=== PATIENT | female | born 1950 | race Caucasian/White ===

== ENCOUNTER 2017-03-05 08:44 | Inpatient (IN) | payer BC ==
[~2017-03-05] VITALS: Ht 165.1 cm; Wt 59.1 kg
--- NOTE | ~2017-03-05 | H ---
[facility] [address] [place] [address] HISTORY AND PHYSICAL Name: MAXIME ROQUE Room #: 438-P ADM IN M.R.#: [id number] Admission: 03/05/17 Attend Phys: Enoc Killian MD Discharge: Date of : 46 Report #: [id number] THIS REPORT FOR: //name// CC: Enoc Chacko Joesph DATE OF SERVICE: 03/05/2017 HISTORY OF PRESENT ILLNESS: The patient is a 66-year-old female who was admitted to the emergency room with nausea and vomiting. Her symptoms began last week when she had an accident stepping on object in her yard and she thinks may be scraped or injured her first toe of the left foot. She had a blister area and then got on a plane for a scheduled trip to [place]. Upon arriving there, she noted her toe to be swollen, red and tender and she presented to a local urgent care clinic. They treated her with it sounds to be cephalexin. However, things did not improve and she went to the ER there as well and continued treatment. Nausea and vomiting developed after initiation of the antibiotic and she flew home to [place] this past Saturday. She presented here to the ER for nausea and vomiting, we have just given symptom treatment. However, the last 2 days symptoms have persisted, she has been unable to eat or drink much and just feeling weak. PAST MEDICAL HISTORY: Hypertension and dyslipidemia. PAST SURGICAL HISTORY: Noncontributory. FAMILY HISTORY: Unknown. SOCIAL HISTORY: She is and lives at home. Admits to alcohol use. No tobacco use. ALLERGIES: None. MEDICATIONS: Crestor, hydrochlorothiazide, tramadol, Zofran, clonidine, cephalexin, and oxycodone. REVIEW OF SYSTEMS: She denies headache, chest pain, shortness of breath, abdominal pain, diarrhea, constipation, dysuria, or syncope. OBJECTIVE: VITAL SIGNS: Temperature 36.8, pulse 56, respirations 18, and blood pressure 154/72. GENERAL: She is awake and alert, in no distress. HEAD AND NECK: Unremarkable. LUNGS: Clear. HEART: Regular. [facility] [address] [place] [address] HISTORY AND PHYSICAL Name: MAXIME ROQUE Room #: 438-P ADM IN [facility].#: [id number] Admission: 03/05/17 Attend Phys: Enoc Killian MD Discharge: Date of : 46 Report #: [id number] ABDOMEN: Soft, normoactive bowel sounds, nontender, no rebound or guarding. EXTREMITIES: No cyanosis or clubbing. The left first toe on the lateral aspect has about a quarter size area of excoriation with some yellow fibrinous base. There are no exposed deep tissues. LABORATORY DATA: Reviewed. ASSESSMENT: 1. Persistent nausea and vomiting. 2. Cellulitis of the left first toe. PLAN: She has failed outpatient treatment with multiple trips to clinics and ER, oral antibiotics and/or pain medication could be contributing. For now, bowel rest with IV fluid, IV antibiotics and I will ask Dr. Witt to assess the left toe for some topical wound care orders. <ELECTRONICALLY SIGNED> By: Enoc Killian MD 03/06/17 0847 1159 1258 Enoc Killian MD /nt
--- NOTE | ~2017-03-05 | HC ---
[facility] [place] [address] CONSULTATION Name: MAXIME ROQUE Room #: 438-P [facility] IN M.R.#: [id number] Admission: 03/05/17 Attend Phys: Enoc Killian MD Discharge: 03/06/17 Date of : 46 Report #: [id number] THIS REPORT FOR: //name// CC: Enoc Chacko Joesph DATE OF SERVICE: 03/06/2017 REQUESTING PHYSICIAN: Dr. Killian. CHIEF COMPLAINT: Toe wounds. HISTORY OF PRESENT ILLNESS: This is a 66-year-old white female who was admitted on Saturday evening for cellulitis of the left great toe with associated intractable nausea and vomiting. The patient states approximately 10 days ago, she inadvertently stepped on what she thinks was an acorn in her front yard and suffered an abrasion to the medial aspect of her left great toe. The patient states that it seemed fairly stable for several days and then she ended up getting on a plane and traveling to [place]. When she got to [place], she noted that the left foot was somewhat swollen and she developed a hemorrhagic blister over the medial aspect of the toe itself. She went to a local urgent care and was started on cephalexin; however, the next couple of days the toe and foot seemed to get worse. It was more swollen, tender and she started having chills. She went to the Emergency Department, had an I and D of the hemorrhagic blister and was started on Levaquin; however, the patient states the Levaquin after one or two doses started making her extremely nauseated. She had intractable nausea and vomiting, caught a flight back to [place] on Saturday and came to the Emergency Department late Saturday afternoon and was admitted to the hospital for intractable nausea and vomiting and cellulitis of the left foot and toe. I have been asked to follow the toe for further evaluation of the wound care. The patient states she never had any other wounds that she could not treat on her own. PAST MEDICAL HISTORY: Significant for hypertension and dyslipidemia. CURRENT MEDICATIONS: Included Crestor, tramadol, Zofran, clonidine, hydrochlorothiazide, cephalexin and oxycodone as well as the recent course of Levaquin, which she said she had the nausea and vomiting from. DRUG ALLERGIES: None. SOCIAL HISTORY: The patient lives at home with her . Drinks alcohol socially. Does not smoke tobacco. REVIEW OF SYSTEMS: CONSTITUTIONAL: The patient had chills for the couple of days prior to [facility] [address] [place] [address] CONSULTATION Name: MAXIME ROQUE Room #: 438-P [facility] IN [facility].#: [id number] Admission: 03/05/17 Attend Phys: Enoc Killian MD Discharge: 03/06/17 Date of : 46 Report #: [id number] admission to the hospital. Denies any in the past 24 hours. NEUROLOGIC: The patient has overall generalized weakness, but no isolated weakness in arms or legs. EYES: No complaints. ENT: No complaints. CARDIAC: The patient denies chest pain, palpitations or any peripheral edema. RESPIRATORY: The patient denies shortness breath, cough or wheezes. GASTROINTESTINAL: The patient had intractable nausea and vomiting and abdominal pain upon admission to the hospital, this has now resolved. She is actually up eating lunch at this time. GENITOURINARY: The patient denies urgency or frequency. MUSCULOSKELETAL: No complaints. SKIN: The patient has a nonhealing ulcer on the medial aspect of the left great toe with surrounding mild erythema. PHYSICAL EXAMINATION: VITAL SIGNS: Temperature 36.7, pulse 75, respirations 16 and BP 108/62. GENERAL: This is an alert and oriented x 3, pleasant white female who is absolutely in no distress. HEENT: Normocephalic and atraumatic. Mucous membranes are moist. Pupils are round. Sclerae white. NECK: Supple and nontender without JVD. BACK: Nontender. LUNGS: Clear. HEART: Regular without murmur. ABDOMEN: Soft. Mild tenderness in the epigastrium without rebound or guarding. No hepatosplenomegaly. EXTREMITIES: The patient moves all extremities without difficulty. Distal pulses are 2+ dorsalis pedis and posterior tibial. Evaluation of the left foot reveals minimal erythema or swelling around the forefoot with minimal tenderness. There are no signs or fluctuance. Evaluation of the left great toe reveals an ulceration that is clean and granulating. Periwound has a slight callus around it. There are no signs of tunneling, tracking, or undermining. There is no involvement of deeper structures, specifically no evidence of any bony involvement. Distal tuft of the toe is intact. Rest of the foot is intact with open ulcerations. Right foot is totally intact without any open ulcerations. NEUROLOGIC: Cranial nerves 2-12 are grossly intact. Motor and sensory grossly intact. LABORATORY DATA: White count 5.1 and hemoglobin 10.4. BUN 11 and creatinine 0.9. WOUND CARE COURSE: I spoke at length with the patient. The patient was seen last afternoon by our wound care nurse at the hospital and was started on gentamicin and gauze. She admits to the fact that the wound today actually [address] [address] CONSULTATION Name: MAIXME ROQUE Room #: 438-P DIS IN M.R.#: [id number] Admission: 03/05/17 Attend Phys: Enoc Killian MD Discharge: 03/06/17 Date of : 46 Report #: [id number] appears much healthier and paper cleaner. We will continue with gentamicin and gauze dressings for now. The patient herself states that she can do the dressings on her own and does not need home health. The patient will follow up in our clinic next week for repeat evaluation. The patient will go home on Keflex 500 mg t.i.d. The patient responded well to IV cefazolin here. The patient states that she also does complain of some burning type pain, which almost seems neuropathic in the toe and we will start her on gabapentin 300 mg at bedtime. The patient will call for any questions or concerns and will make sure she maximizes her oral supplementation of protein for healing. IMPRESSION: 1. Chronic ulcer, left great toe, limited to exposure of fat layer. 2. Resolving cellulitis, left great toe. 3. Intractable nausea and vomiting possibly secondary to antibiotic usage now resolved. 4. Mild debility. 5. Mild protein calorie malnutrition secondary to nausea and vomiting. PLAN: Described in length as above. We will continue to follow the patient as an outpatient and the patient will call for questions or concerns. By: [id number] Robbi Witt MD /nt
--- NOTE | ~2017-03-05 | D ---
[facility] [place] [address] DISCHARGE SUMMARY Name: MAXIME ROQUE Room #: 438-P [facility] IN M.R.#: [id number] Admission: 03/05/17 Attend Phys: Enoc Killian MD Discharge: 03/06/17 Date of : 46 Report #: [id number] THIS REPORT FOR: //name// CC: Enoc Pink DATE OF SERVICE: 03/06/2017 FINAL DIAGNOSES: 1. Nausea and vomiting. 2. Cellulitis of the left first toe. HOSPITAL COURSE: The patient was admitted with persistent nausea, vomiting, and failed outpatient treatment after several ER trips both in [place] and here in [facility]. X-ray was unremarkable of the abdomen. She was placed on bowel rest with IV fluids overnight and IV antibiotics. The oxycodone was discontinued for concern that this was a precipitant of her symptoms. Wound care followed and managed her toe wound with some topical antibiotic ointment. She had no other interval complication. The following day, she was eating a regular diet with no abdominal symptoms. DISPOSITION: She is discharged to home with diet and activity as tolerated. She will continue to finish her Keflex. She has topical antibiotic ointment to the left toe. She is to discontinue any of the narcotics at home. Use Tylenol or Advil for pain. Follow up with Dr. Pink in a few days. By: [id number] Enoc Killian MD /thony
[2017-03-05 08:44] VITALS: BP 153/95
[~2017-03-05 08:44] MED LIST: AMBEREN PO; ATENOLOL 25 MG25 M1 PO; BAYER CHEWABLE81 MG PO; CATAPRES0.1 MG PO; CLEOCIN HCL150 MG PO; CO Q-10100 MG PO; CRESTOR10 MG PO; FISHOIL PO; HYDROCHLOROTHIA25 M2 PO; KEFLEX500 M1 PO; OXYCODONE HCL 55 MG PO; ULTRAM 50MG TAB50 MG PO; ZOFRAN ODT4 MG PO; ZPAK PO
[2017-03-05 09:21] LABS: HEMOGLOBIN 12.7 gm/dL (12.0-15.0)
[2017-03-05 09:23] LABS: ABSOLUTE NEUTROPHILS 4.9 thou/uL (1.4-8.2); BASOPHILS 0.4 % (0.0-2.0); EOSINOPHILS 1.5 % (0.0-3.0); HEMATOCRIT 37.2 % (37.0-47.0); LYMPHOCYTES 20.2 % (24.0-44.0); MCH 31.7 pg (26.0-34.0); MCHC 34.3 g/dL (28.0-37.0); MCV 92.3 fL (80.0-100.0); MONOCYTES 9.9 % (1.0-8.0); PLATELET COUNT 245 thou/uL (150-400); RBC 4.03 mil/uL (4.20-5.00); RDW 12.6 % (10.5-14.5); WBC 7.2 thou/uL (4.0-11.0)
[2017-03-05 09:24] LABS: MANUAL DIFF NO
[2017-03-05 09:34] LABS: CALCIUM 9.9 mg/dL (8.5-10.1); CREATININE 0.8 mg/dL (0.6-1.0); POTASSIUM 4.3 mmol/L (3.5-5.1)
[2017-03-05 09:40] LABS: DIRECT BILIRUBIN 0.2 mg/dL (<0.1-0.3); TOTAL BILIRUBIN 0.7 mg/dL (<0.1-1.0); TOTAL PROTEIN 6.6 g/dL (6.4-8.2)
[2017-03-05 10:15] VITALS: BP 153/72
[2017-03-05 10:28] VITALS: BP 155/79
[2017-03-05 11:03] VITALS: BP 154/72
[2017-03-05 15:54] VITALS: BP 159/73
[2017-03-05 20:16] VITALS: BP 133/68
[2017-03-06 04:34] VITALS: BP 122/60
[2017-03-06 06:33] LABS: HEMATOCRIT 30.4 % (37.0-47.0); MCH 31.7 pg (26.0-34.0); MCHC 34.1 g/dL (28.0-37.0); MCV 92.9 fL (80.0-100.0); RBC 3.27 mil/uL (4.20-5.00); RDW 12.7 % (10.5-14.5); WBC 5.1 thou/uL (4.0-11.0)
[2017-03-06 06:34] LABS: HEMOGLOBIN 10.4 gm/dL (12.0-15.0)
[2017-03-06 06:35] LABS: CALCIUM 9.4 mg/dL (8.5-10.1); CREATININE 0.9 mg/dL (0.6-1.0); POTASSIUM 3.6 mmol/L (3.5-5.1)
[2017-03-06 07:48] VITALS: BP 108/62
[2017-03-06 13:26] VITALS: BP 108/62
== END 2017-03-06 14:30 | disposition home or self-care (01) | DRG 603 ==
LOC: ER 08:44 → EROBS 09:59 → 4S 09:59 → ENTRNSPT 03-06 14:20 → EDTRNSPTSTS 03-06 14:22 → 4S 03-06 14:30 → CMPTRNSPT 03-06 14:48
PROVIDERS: Emergency Medicine; Internal Medicine Geriatric Medicine
DX: L03.032 Cellulitis of left toe (principal); E44.1 Mild protein-calorie malnutrition; I10 Essential (primary) hypertension; E78.5 Hyperlipidemia, unspecified; R11.2 Nausea with vomiting, unspecified; E86.0 Dehydration; L97.529 Non-pressure chronic ulcer of other part of left foot with unspecified severity; Z68.21 Body mass index [BMI] 21.0-21.9, adult
CPT/HCPCS: 10195

== ENCOUNTER → 2017-03-14 | Outpatient (CLI) | payer BC | LOC: HYPER 06:27 | DX: L97.521 Non-pressure chronic ulcer of other part of left foot limited to breakdown of skin (principal); E78.00 Pure hypercholesterolemia, unspecified; I10 Essential (primary) hypertension; Z72.89 Other problems related to lifestyle ==

== ENCOUNTER → 2017-04-03 | Outpatient (CLI) | payer BC ==
[~2017-04-03] MED LIST changes: +CIPRO500 MG PO; +CITRATE OF MAG296 ML PO; +LISINOPRIL40 MG PO; +METOPROLOL SUCC50 MG PO; +PHENERGAN 25 MG25 M1 PO; +PROMS25 WY RECTAL
== END ==
LOC: HYPER 06:36
DX: L97.521 Non-pressure chronic ulcer of other part of left foot limited to breakdown of skin (principal); I10 Essential (primary) hypertension; E78.00 Pure hypercholesterolemia, unspecified; Z72.89 Other problems related to lifestyle

== ENCOUNTER 2017-06-12 05:33 | Emergency (ER) | payer BC, OTHER ==
[~2017-06-12] VITALS: Ht 165.1 cm; Wt 59.0 kg
--- NOTE | ~2017-06-12 | EKG ---
[address] [address] ELECTROCARDIOGRAM REPORT Name: MAXIME ROQUE [id number] Admission: 06/12/17 Attend Phys: Discharge: 06/12/17 Date of : 46 Report #: [id number] THIS REPORT FOR: //name// [facility] ED Test Date: 2017-06-12 Test Time: 06:12:17 Pat Name: MAXIME ROQUE Department: Room: Gender: F Photography Instructor: LRLUCAS : 1950 Requested By: Thien Herman Order Number: [id number] MD: Ross Romo Measurements Intervals [place] Rate: 69 P: 37 MD: 150 QRS: 19 QRSD: 110 T: 33 QT: 398 QTc: 427 Interpretive Statements Sinus rhythm No significant abnormality No previous ECG available for comparison Electronically Signed On 06-12-2017 15:02:23 CDT by Ross Romo [email or web address] <ELECTRONICALLY SIGNED> By: Ross Romo MD, [facility] 06/12/17 1502 0612 1 Ross Romo MD, FACC /EPI
[~2017-06-12 05:33] MED LIST changes: -CIPRO500 MG PO; -CITRATE OF MAG296 ML PO; -LISINOPRIL40 MG PO; -METOPROLOL SUCC50 MG PO; -PHENERGAN 25 MG25 M1 PO; -PROMS25 WY RECTAL
[2017-06-12 06:03] LABS: ABSOLUTE NEUTROPHILS 4.7 thou/uL (1.4-8.2); BASOPHILS 0.4 % (0.0-2.0); EOSINOPHILS 1.3 % (0.0-3.0); HEMATOCRIT 39.3 % (37.0-47.0); HEMOGLOBIN 13.4 gm/dL (12.0-15.0); LYMPHOCYTES 13.6 % (24.0-44.0); MCH 31.4 pg (26.0-34.0); MCV 92.2 fL (80.0-100.0); MONOCYTES 7.2 % (1.0-8.0); PLATELET COUNT 200 thou/uL (150-400); POLYS 77.5 % (36.0-66.0); RBC 4.26 mil/uL (4.20-5.00); RDW 13.4 % (10.5-14.5); WBC 6.1 thou/uL (4.0-11.0)
[2017-06-12 06:05] LABS: ANION GAP 10 mmol/L (7-16); BUN 24 mg/dL (7-18); CHLORIDE 104 mmol/L (98-107); CO2 26 mmol/L (21-32); CREATININE 1.1 mg/dL (0.6-1.0); GLUCOSE 143 mg/dL (74-106); POTASSIUM 4.1 mmol/L (3.5-5.1); SODIUM 140 mmol/L (136-145)
[2017-06-12 06:13] LABS: ALBUMIN 3.9 g/dL (3.4-5.0); LIPASE 133 U/L (73-393); SGOT 20 U/L (15-37); SGPT 29 U/L (30-65); TOTAL BILIRUBIN 0.4 mg/dL (<0.1-1.0); TROPONIN-I < 0.04 ng/mL (<0.06)
[2017-06-12] MEDS ORDERED: CITRATE OF MAG296 ML PO (06:45)
[2017-06-12] MEDS ORDERED: PHENERGAN 25 MG25 M1 PO (06:45)
[2017-06-12] MEDS ORDERED: ZOFRAN ODT4 MG PO (06:45)
[2017-06-12] MEDS ORDERED: PROMS25 WY RECTAL (07:25)
== END 2017-06-12 07:34 | disposition home or self-care (01) ==
LOC: ER 05:33
PROVIDERS: Emergency Medicine
DX: R10.10 Upper abdominal pain, unspecified (principal); R19.7 Diarrhea, unspecified; R11.2 Nausea with vomiting, unspecified; I10 Essential (primary) hypertension; E78.00 Pure hypercholesterolemia, unspecified

== ENCOUNTER 2017-06-14 08:34 | Emergency (ER) | payer BC, OTHER ==
[~2017-06-14] VITALS: Ht 170.2 cm; Wt 57.1 kg
--- NOTE | ~2017-06-14 | EKG ---
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
[~2017-06-14 08:34] MED LIST changes: +CITRATE OF MAG296 ML PO; +PHENERGAN 25 MG25 M1 PO; +PROMS25 WY RECTAL
[2017-06-14] MEDS ORDERED: CIPRO500 MG PO (09:05)
[2017-06-14] MEDS ORDERED: METOPROLOL SUCC50 MG PO (09:05)
[2017-06-14] MEDS ORDERED: LISINOPRIL40 MG PO (09:06)
[2017-06-14 09:20] LABS: ABSOLUTE NEUTROPHILS 3.4 thou/uL (1.4-8.2); BASOPHILS 0.2 % (0.0-2.0); EOSINOPHILS 0.9 % (0.0-3.0); HEMATOCRIT 38.5 % (37.0-47.0); HEMOGLOBIN 13.1 gm/dL (12.0-15.0); LYMPHOCYTES 27.7 % (24.0-44.0); MCH 31.1 pg (26.0-34.0); MCV 91.4 fL (80.0-100.0); MONOCYTES 10.4 % (1.0-8.0); PLATELET COUNT 186 thou/uL (150-400); POLYS 60.8 % (36.0-66.0); RBC 4.21 mil/uL (4.20-5.00); RDW 13.1 % (10.5-14.5); WBC 5.7 thou/uL (4.0-11.0)
[2017-06-14 09:29] LABS: CALCIUM 10.3 mg/dL (8.5-10.1); CREATININE 1.2 mg/dL (0.6-1.0); POTASSIUM 4.1 mmol/L (3.5-5.1)
[2017-06-14 09:35] LABS: ALBUMIN 3.9 g/dL (3.4-5.0); TOTAL BILIRUBIN 0.6 mg/dL (<0.1-1.0); TOTAL PROTEIN 6.9 g/dL (6.4-8.2)
[2017-06-14 10:36] LABS: URINE BILIRUBIN NEGATIVE (Negative); URINE BLOOD TRACE (Negative); URINE CLARITY CLEAR; URINE COLOR YELLOW; URINE GLUCOSE-RANDOM* NEGATIVE (Negative); URINE KETONES 2+ (Negative); URINE LEUKOCYTES-REFLEX NEGATIVE (Negative); URINE NITRITE-REFLEX NEGATIVE (Negative); URINE PROTEIN (DIPSTICK) NEGATIVE (Negative); URINE SPECIFIC GRAVITY <= 1.005 (1.005-1.035); URINE UROBILINOGEN 0.2 E.U./dl (0.2-1.0)
[2017-06-14] MEDS ORDERED: PROMS25 WY RECTAL (10:50)
[2017-06-14 11:06] VITALS: BP 137/62
== END 2017-06-14 11:09 | disposition home or self-care (01) ==
LOC: ER 08:34
PROVIDERS: Emergency Medicine
DX: R11.2 Nausea with vomiting, unspecified (principal); R19.7 Diarrhea, unspecified; I10 Essential (primary) hypertension; E78.00 Pure hypercholesterolemia, unspecified

== ENCOUNTER → 2019-10-02 | Outpatient (CLI) | payer OTHER ==
[~2019-10-02] MED LIST changes: +CIPRO500 MG PO; +LISINOPRIL40 MG PO; +METOPROLOL SUCC50 MG PO
== END ==
LOC: ULTRA 07:43
PROVIDERS: ATTEND Internal Medicine
DX: N28.1 Cyst of kidney, acquired (principal); N18.3 Chronic kidney disease, stage 3 (moderate)

== ENCOUNTER 2021-01-23 11:20 | Emergency (ER) | payer OTHER ==
[~2021-01-23] VITALS: Ht 165.1 cm; Wt 57.1 kg
[2021-01-23] MEDS ORDERED: HYDROCHLOROTHIA25 M1 PO (11:48)
[2021-01-23] MEDS ORDERED: SIMVASTATIN40 MG PO (11:49)
[2021-01-23] MEDS ORDERED: BUPROPION HCL200 MG PO (11:49)
[2021-01-23 12:13] LABS: BASOPHILS 0.5 % (0.0-2.0); EOSINOPHILS 0.3 % (0.0-3.0); HEMATOCRIT 38.1 % (37.0-47.0); HEMOGLOBIN 12.8 gm/dL (12.0-15.0); LYMPHOCYTES 19.7 % (24.0-44.0); MCH 31.7 pg (26.0-34.0); MCHC 33.7 g/dL (28.0-37.0); MCV 94.2 fL (80.0-100.0); MONOCYTES 13.7 % (1.0-8.0); PLATELET COUNT 194 thou/uL (150-400); POLYS 65.8 % (36.0-66.0); RBC 4.05 mil/uL (4.20-5.00); RDW 13.3 % (10.5-14.5); WBC 4.6 thou/uL (4.0-11.0)
[2021-01-23 12:43] LABS: CALCIUM 9.9 mg/dL (8.5-10.1); CREATININE 1.1 mg/dL (0.6-1.0); POTASSIUM 4.4 mmol/L (3.5-5.1)
[2021-01-23 12:53] LABS: ALBUMIN 4.2 g/dL (3.4-5.0); TOTAL BILIRUBIN 1.2 mg/dL (0.2-1.0); TOTAL PROTEIN 7.1 g/dL (6.4-8.2)
[2021-01-23 15:21] LABS: URINE BILIRUBIN NEGATIVE (Negative); URINE BLOOD TRACE (Negative); URINE CLARITY CLEAR; URINE COLOR YELLOW; URINE GLUCOSE-RANDOM* NEGATIVE (Negative); URINE KETONES NEGATIVE (Negative); URINE LEUKOCYTES-REFLEX NEGATIVE (Negative); URINE NITRITE-REFLEX NEGATIVE (Negative); URINE PROTEIN (DIPSTICK) NEGATIVE (Negative); URINE SPECIFIC GRAVITY 1.015 (1.005-1.035); URINE UROBILINOGEN 0.2 E.U./dl (0.2-1.0)
[2021-01-23] MEDS ORDERED: CARAFATE 1 GM TA1 G1 PO (15:35)
[2021-01-23] MEDS ORDERED: OMEPRAZOLE40 MG PO (15:35)
[2021-01-23] MEDS ORDERED: ONDANSETRON HCL4 M2 PO (15:35)
[2021-01-23 15:37] VITALS: BP 175/101
--- NOTE | 2021-01-23 15:48 | EKG ---
[place] [address] [facility] [place] [address] ELECTROCARDIOGRAM REPORT Name: MAXIME ROQUE [facility] [id number] Admission: 01/23/21 Attend Phys: Discharge: Date of : 46 Report #: [id number] [facility] ED Test Date: 2021-01-23 Test Time: 11:54:17 Pat Name: MAXIME ROQUE Department: Room: Gender: F Supervisor Mixing: sasha : 1950 Requested By: Alex Patel Order Number: [id number] MD: Nino Khan Measurements Intervals [place] Rate: 68 P: 68 ME: 145 QRS: -19 QRSD: 87 T: 31 QT: 410 QTc: 437 Interpretive Statements Sinus rhythm Probable left atrial enlargement Borderline left axis deviation Compared to ECG 06/14/2017 09:17:50 ST (T wave) deviation no longer present Electronically Signed On 01-23-2021 15:48:16 CDT by Nino Khan [email or web address] <ELECTRONICALLY SIGNED> By: Nino Khan MD, [facility] 01/23/21 1548 1154 1154 Nino Khan MD, FACC /EPI
== END 2021-01-23 15:54 | disposition home or self-care (01) ==
LOC: ER 11:20
PROVIDERS: Nurse Practitioner
DX: R11.2 Nausea with vomiting, unspecified (principal); Z20.822 Contact with and (suspected) exposure to COVID-19; I10 Essential (primary) hypertension; E78.00 Pure hypercholesterolemia, unspecified; Z79.891 Long term (current) use of opiate analgesic; Z79.899 Other long term (current) drug therapy

== ENCOUNTER 2021-01-25 09:48 | Emergency (ER) | payer OTHER ==
[~2021-01-25] VITALS: Ht 165.1 cm; Wt 56.7 kg
[~2021-01-25 09:48] MED LIST changes: +BUPROPION HCL200 MG PO; +CARAFATE 1 GM TA1 G1 PO; +HYDROCHLOROTHIA25 M1 PO; +OMEPRAZOLE40 MG PO; +ONDANSETRON HCL4 M2 PO; +SIMVASTATIN40 MG PO
[2021-01-25 10:34] LABS: ABSOLUTE NEUTROPHILS 2.3 thou/uL (1.4-8.2); BASOPHILS 0.5 % (0.0-2.0); EOSINOPHILS 0.7 % (0.0-3.0); HEMATOCRIT 35.8 % (37.0-47.0); MCH 31.4 pg (26.0-34.0); MCHC 33.5 g/dL (28.0-37.0); MCV 93.5 fL (80.0-100.0); MONOCYTES 15.5 % (1.0-8.0); PLATELET COUNT 189 thou/uL (150-400); POLYS 59.3 % (36.0-66.0); RBC 3.83 mil/uL (4.20-5.00); RDW 13.4 % (10.5-14.5)
[2021-01-25 10:48] LABS: CALCIUM 9.5 mg/dL (8.5-10.1)
[2021-01-25 10:54] LABS: DIRECT BILIRUBIN 0.1 mg/dL (<0.1-0.2); TOTAL BILIRUBIN 0.9 mg/dL (0.2-1.0); TOTAL PROTEIN 6.8 g/dL (6.4-8.2)
[2021-01-25 12:17] LABS: URINE BILIRUBIN NEGATIVE (Negative); URINE BLOOD TRACE (Negative); URINE CLARITY CLEAR; URINE COLOR YELLOW; URINE GLUCOSE-RANDOM* NEGATIVE (Negative); URINE KETONES NEGATIVE (Negative); URINE LEUKOCYTES-REFLEX NEGATIVE (Negative); URINE NITRITE-REFLEX NEGATIVE (Negative); URINE PROTEIN (DIPSTICK) NEGATIVE (Negative); URINE SPECIFIC GRAVITY >= 1.030 (1.005-1.035); URINE UROBILINOGEN 0.2 E.U./dl (0.2-1.0)
[2021-01-25 13:27] VITALS: BP 145/69
== END 2021-01-25 13:34 | disposition home or self-care (01) ==
LOC: ER 09:48
PROVIDERS: Student in an Organized Health Care Education/Training Program
DX: R11.2 Nausea with vomiting, unspecified (principal); I10 Essential (primary) hypertension; E78.00 Pure hypercholesterolemia, unspecified; Z79.899 Other long term (current) drug therapy; Z79.891 Long term (current) use of opiate analgesic; Z79.1 Long term (current) use of non-steroidal anti-inflammatories (NSAID)